=== PATIENT | female | born 1995 | race Caucasian/White ===

== ENCOUNTER 2017-12-28 06:10 | Inpatient (IN) | payer OTHER ==
[2017-12-28] MEDS ORDERED: AMPICILLIN - 2 GM in SODIUM CHLORIDE 100 ML IVPB ONE (06:30)
[2017-12-28] MEDS: ELECTROLYTE-148 SOLN 1,000 ML IV SCH ×2 (07:15→09:23)
[2017-12-28] MEDS ORDERED: AMPICILLIN SODIUM 2 GM VIAL ONE (07:17)
[2017-12-28 08:07] LABS: BASO % 0.3 % (0-2.0); EOS % 0.2 % (0-4.5); HEMATOCRIT 40.2 % (32.4-45.2); HEMOGLOBIN 13.3 GM/dL (10.7-15.3); LYMPH % 12.9 % (8-40); MCH 29.9 pg (25.7-33.7); MEAN CELL VOLUME 90.4 fl (80-96); MEAN PLT VOLUME 11.9 fl (7.5-11.1); MONO % 7.7 % (3.8-10.2); NEUT % 78.9 % (42.8-82.8); PLATELET COUNT 98 K/MM3 (134-434); RBC 4.45 M/mm3 (3.60-5.2); RDW 13.4 % (11.6-15.6); WHITE BLOOD COUNT 11.6 K/mm3 (4.0-10.0)
[2017-12-28 08:14] VITALS: BMI 25.7
[2017-12-28 08:20] LABS: INR 0.93 (0.83-1.09)
[2017-12-28 08:23] LABS: ACTIVATED PTT 27.6 SECONDS (25.2-36.5); ALBUMIN 2.9 g/dl (3.4-5.0); ALK PHOS 293 U/L (45-117); ANION GAP 9 MMOL/L (8-16); BILIRUBIN,TOTAL 0.4 mg/dL (0.2-1); BLOOD UREA NITROGEN 7 mg/dL (7-18); CALCIUM 9.1 mg/dL (8.5-10.1); CHLORIDE 106 mmol/L (98-107); CO2 23 mmol/L (21-32); CREATININE 0.7 mg/dL (0.55-1.3); GLUCOSE,RANDOM 76 mg/dL (74-106); SGOT/AST 34 U/L (15-37); SGPT/ALT 29 U/L (13-61); SODIUM 138 mmol/L (136-145); TOT PROT 6.6 g/dl (6.4-8.2)
[2017-12-28] MEDS ORDERED: BUPIVACAINE HCL/PF 0.25% (2.5MG/ML) 10 ML VIAL ONE (08:33)
--- NOTE | 2017-12-28 08:37 | HP ---
Past Medical History - Primary Care Physician PCP:: Eleazar Kunz - Admission Chief Complaint: 39 weeks, labor, rom History of Present Illness: 22 yo f g 1 p0 edc 12/31 c/o rom since 5 am today, mec stain, cx 3 cm 80 vx -2 mr, mec stain AF, cat 1, fhr regular contraction History Source: Patient - Past Medical History ...: 1 ...Para: 0 ...Term: 0 ...: 0 ...Spon : 0 ...Induced : 0 ...Multiple Gestation: 0 ... Weeks Gestation by Dates: 39.4 ...EDC by Dates: 12/31/17 - Past Surgical History Hx Myomectomy: No Hx Transabdominal Cerclage: No - Smoking History Smoking history: Never smoked Have you smoked in the past 12 months: No - Alcohol/Substance Use Hx Alcohol Use: No - Social History History of Recent Travel: No Home Medications - Allergies Allergies/Adverse Reactions: Allergies Allergy/AdvReac Type Severity Reaction Status Date / Time No Known Allergies Allergy Verified 12/28/17 07:26 - Home Medications Home Medications: Ambulatory Orders Ferrous Sulfate [Feosol] 325 mg PO DAILY 12/28/17 Vits96/Iron Fum/Folic [ Tablet] 1 each PO DAILY 12/28/17 Review of Systems - Review of Systems Constitutional: reports: No Symptoms Eyes: reports: No Symptoms HENT: reports: No Symptoms Neck: reports: No Symptoms Cardiovascular: reports: No Symptoms Respiratory: reports: No Symptoms Gastrointestinal: reports: No Symptoms Genitourinary: reports: No Symptoms Breasts: reports: No Symptoms Reported Musculoskeletal: reports: No Symptoms Integumentary: reports: No Symptoms Neurological: reports: No Symptoms Endocrine: reports: No Symptoms Hematology/Lymphatic: reports: No Symptoms Psychiatric: reports: No Symptoms Physical Exam - Maternity Vital Signs: Vital Signs Temperature 98.8 F 12/28/17 08:00 Pulse Rate 72 12/28/17 08:00 Respiratory Rate 18 12/28/17 08:00 Blood Pressure 122/73 12/28/17 08:00 O2 Sat by Pulse Oximetry (%) Constitutional: Yes: Well Nourished, No Distress, Calm Eyes: Yes: WNL, Conjunctiva Clear, EOM Intact HENT: Yes: WNL, Atraumatic, Normocephalic Neck: Yes: WNL, Supple, Trachea Midline Cardiovascular: Yes: WNL, Regular Rate and Rhythm Breast(s): Yes: WNL - Abdominal Exam/OB Fundal Height: 40 Number of Fetuses: Single Presentation: Vertex Contractions: Yes Regularity: Regular Monitor Mode: External Heart Rate Location: [facility] Category: I Accelerations: Uniform Decelerations: None - Vaginal Exam/OB Vaginal Bleediing: No Speculum Exam: No Dilatation (cm): 3 cm Effacement (%): 80 Amniotic Membrane Status: Ruptured Nitrazine Test: Positive Meconium: Light Presentation: Vertex/Position Station: -2 - Physical Exam Musculoskeletal: Yes: WNL Extremities: Yes: WNL Edema: LLE: Trace, RLE: Trace Deep Tendon Reflex Grade: Normal +2 Psychiatric: Yes: WNL - Labs Lab Results: CBC, BMP 12/28/17 07:40 12/28/17 07:40 Hemorrhage Risk Assessment - Risk Factors Medium Risk Factors: Yes: None Risk Score: 1 Risk Level: Medium Risk Problem List - Problems (1) with 39 completed weeks gestation Code(s): Z3A.39 - 39 WEEKS GESTATION OF (2) membrane rupture Code(s): DNH6059 - (3) Meconium in amniotic fluid Code(s): P96.83 - MECONIUM STAINING Assessment/Plan admit, fhr cat 1, plan fhm, pain mamngement expect vaginal delivery
[2017-12-28] MEDS ORDERED: FENTANYL/BUPIVACAINE/NS/PF - PCEA - 50 ML DISP.SYRIN EP ONE ×2 (08:54→13:36)
[2017-12-28] MEDS ORDERED: NALOXONE HCL 0.4 MG/ML VIAL IVPUSH PRN (09:07)
[2017-12-28] MEDS ORDERED: FENTANYL/BUPIVACAINE/NS/PF - PCEA - 50 ML DISP.SYRIN EP SCH ×2 (09:15→10:28)
[2017-12-28 09:22] LABS: RPR NONREACTIVE (NONREACTIVE)
[2017-12-28] MEDS ORDERED: AMPICILLIN - 1 GM in SODIUM CHLORIDE 100 ML IVPB SCH (10:30)
[2017-12-28] MEDS ORDERED: OXYTOCIN 20 UNITS in 0.9% NS 20 UNIT/1,000 ML INFUS.BAG IV ONE (14:13)
[2017-12-28] MEDS ORDERED: LIDOCAINE HCL 1% PRESERVATIVE FREE - 30ML VIAL ONE (15:17)
--- NOTE | 2017-12-28 16:00 | PN ---
Progress Note (short form) - Note Progress Note: 205pm cx9 cm 100 vx 1+ . mr, mec . stain , fhr cat1 Problem List - Problems (1) with 39 completed weeks gestation Code(s): Z3A.39 - 39 WEEKS GESTATION OF (2) membrane rupture Code(s): YKH5547 - (3) Meconium in amniotic fluid Code(s): P96.83 - MECONIUM STAINING
[2017-12-28] MEDS ORDERED: METHYLERGONOVINE MALEATE 0.2 MG/1 ML AMP IM PRN (16:01)
[2017-12-28] MEDS ORDERED: BENZOCAINE 28 GM HEMORRHOIDAL OINTMENT TP PRN (16:01)
[2017-12-28] MEDS ORDERED: BISACODYL 10 MG SUPP.RECT RC PRN (16:01)
[2017-12-28] MEDS ORDERED: WITCH HAZEL 50% (TUCKS) 40 PAD/JAR PAD TP PRN (16:01)
[2017-12-28] MEDS ORDERED: BENZOCAINE 20% 57 GM BOTTLE TP PRN (16:01)
--- NOTE | 2017-12-28 16:01 | PN ---
Progress Note (short form) - Note Progress Note: 315 pm, cx full 100 vx2+ mr, fhr cat 1, wants to push Problem List - Problems (1) with 39 completed weeks gestation Code(s): Z3A.39 - 39 WEEKS GESTATION OF (2) membrane rupture Code(s): QFR3659 - (3) Meconium in amniotic fluid Code(s): P96.83 - MECONIUM STAINING
[2017-12-28] MEDS ORDERED: OXYTOCIN 20 UNITS in 0.9% NS 20 UNIT/1,000 ML INFUS.BAG IV SCH (16:15)
[2017-12-28] MEDS ORDERED: IBUPROFEN 600 MG TABLET (FP) PO ONE (17:06)
[2017-12-28] MEDS ORDERED: ACETAMINOPHEN 325 MG TABLET (FP) ONE (17:06)
[2017-12-28 17:11] LABS: ARTERIAL BLOOD GAS BASE EXCESS -3.2 meq/l (-2-2); ARTERIAL BLOOD GAS PCO2 55.7 mmHg (35-45); ARTERIAL BLOOD GAS pH 7.27 (7.35-7.45)
[2017-12-28] MEDS: ACETAMINOPHEN 325 MG TABLET (FP) PO PRN ×2 (17:14→21:54)
[2017-12-28] MEDS: IBUPROFEN 600 MG TABLET (FP) PO PRN ×2 (17:14→21:54)
[2017-12-28 17:22] LABS: ARTERIAL BLD GAS O2 SATURATION 24.1 % (90-98.9); ARTERIAL BLOOD GAS PO2 16.6 mmHg (80-100); VENOUS PC02 45.9 mmHg (38-52); VENOUS PH 7.32 (7.32-7.42)
[2017-12-28 17:23] LABS: VENOUS PO2 30.7 mmHg (28-48)
[2017-12-28] MEDS ORDERED: FERROUS SO4 325 MG TABLET (FP) PO SCH (17:30)
[2017-12-29] MEDS ORDERED: OXYTOCIN 20 UNITS in 0.9% NS 20 UNIT/1,000 ML INFUS.BAG IV SCH (00:14)
--- NOTE | 2017-12-29 01:55 | PN ---
Post Progress Note Post Day: 2 Type of Delivery: Vital Signs: Vital Signs Temperature 97.0 F L 12/28/17 22:00 Pulse Rate 79 12/28/17 22:00 Respiratory Rate 20 12/28/17 22:00 Blood Pressure 113/67 12/28/17 22:00 O2 Sat by Pulse Oximetry (%) 100 12/28/17 15:15 Breast Exam: Yes: Soft Uterus: Yes: Fundus Firm Abdomen/GI: Yes: Abdomen soft Lochia: Yes: Rubra Lochia, amount: Small Extremities: Yes: Calves non-tender Perineum: Yes: Intact Activity: Ambulating - Labs Labs: CBC WBC 11.6 K/mm3 (4.0-10.0) H 12/28/17 07:40 RBC 4.45 M/mm3 (3.60-5.2) 12/28/17 07:40 Hgb 13.3 GM/dL (10.7-15.3) 12/28/17 07:40 Hct 40.2 % (32.4-45.2) 12/28/17 07:40 MCV 90.4 fl (80-96) 12/28/17 07:40 MCH 29.9 pg (25.7-33.7) 12/28/17 07:40 MCHC 33.0 g/dl (32.0-36.0) 12/28/17 07:40 RDW 13.4 % (11.6-15.6) 12/28/17 07:40 Plt Count 98 K/MM3 (134-434) L 12/28/17 07:40 MPV 11.9 fl (7.5-11.1) H 12/28/17 07:40 Absolute Neuts (auto) 9.1 K/mm3 (1.5-8.0) H 12/28/17 07:40 Neutrophils % 78.9 % (42.8-82.8) 12/28/17 07:40 Lymphocytes % 12.9 % (8-40) 12/28/17 07:40 Monocytes % 7.7 % (3.8-10.2) 12/28/17 07:40 Eosinophils % 0.2 % (0-4.5) 12/28/17 07:40 Basophils % 0.3 % (0-2.0) 12/28/17 07:40 Nucleated RBC % 0 % (0-0) 12/28/17 07:40 Assessment/Plan as above oob reg diet check labs
[2017-12-29 06:08] LABS: HBsAG SCREEN Negative (Negative); RUBELLA IgG ANTIBODY 1.41 index (Immune >0.99)
[2017-12-29 08:02] LABS: BASO % 0.1 % (0-2.0); EOS % 0.3 % (0-4.5); HEMATOCRIT 37.2 % (32.4-45.2); HEMOGLOBIN 12.5 GM/dL (10.7-15.3); MCH 30.3 pg (25.7-33.7); MCHC 33.7 g/dl (32.0-36.0); MEAN CELL VOLUME 89.9 fl (80-96); MEAN PLT VOLUME 11.9 fl (7.5-11.1); MONO % 7.2 % (3.8-10.2); NEUT % 80.4 % (42.8-82.8); PLATELET COUNT 90 K/MM3 (134-434); RBC 4.14 M/mm3 (3.60-5.2); RDW 13.9 % (11.6-15.6); WHITE BLOOD COUNT 14.3 K/mm3 (4.0-10.0)
[2017-12-29] MEDS: FERROUS SO4 325 MG TABLET (FP) PO SCH ×2 (08:20→17:00)
[2017-12-29] MEDS: PRENATAL VITAMINS W/ FOLIC ACID TABLET (FP) PO SCH (09:03)
[2017-12-29] MEDS: IBUPROFEN 600 MG TABLET (FP) PO PRN ×3 (12:50→21:49)
[2017-12-29] MEDS: ACETAMINOPHEN 325 MG TABLET (FP) PO PRN ×3 (12:51→21:49)
[2017-12-29] MEDS ORDERED: SENNOSIDES/DOCUSATE COMBO (SENNA PLUS) TABLET (UD) PO PRN (22:00)
[2017-12-30] MEDS: ACETAMINOPHEN 325 MG TABLET (FP) PO PRN (08:02)
[2017-12-30] MEDS: IBUPROFEN 600 MG TABLET (FP) PO PRN (08:02)
[2017-12-30] MEDS: FERROUS SO4 325 MG TABLET (FP) PO SCH (08:03)
[2017-12-30 08:46] VITALS: BP 113/53; PULSE 66; TEMP 98.1
[2017-12-30] MEDS: PRENATAL VITAMINS W/ FOLIC ACID TABLET (FP) PO SCH (10:04)
--- NOTE | 2017-12-31 16:29 | DS ---
Physical Exam-[employer] Vital Signs: Vital Signs Temperature 98.1 F 12/30/17 08:45 Pulse Rate 66 12/30/17 08:45 Respiratory Rate 18 12/30/17 08:45 Blood Pressure 113/53 L 12/30/17 08:45 O2 Sat by Pulse Oximetry (%) 100 12/28/17 15:15 Constitutional: Yes: Well Nourished, No Distress, Calm Eyes: Yes: WNL, Conjunctiva Clear, EOM Intact HENT: Yes: WNL, Atraumatic, Normocephalic Neck: Yes: WNL, Supple, Trachea Midline Cardiovascular: Yes: WNL, Regular Rate and Rhythm Respiratory: Yes: WNL, Regular, CTA Bilaterally Gastrointestinal: Yes: WNL ...Rectal Exam: Yes: WNL Renal/: Yes: WNL External Genitalia: Yes: Normal ....Post : Yes: Uterus firm, Uterus non-tender, Slight lochia rubra Breast(s): Yes: WNL Musculoskeletal: Yes: WNL Extremities: Yes: WNL Integumentary: Yes: WNL Neurological: Yes: WNL, Alert, Oriented ...Motor Strength: WNL Psychiatric: Yes: WNL, Alert, Oriented Labs: CBC, BMP 12/29/17 07:30 12/28/17 07:40 Delivery - Delivery Vaginal Delivery: Spontaneous (no complication) Type of Anesthesia: Local, Epidural Episiotomy/Laceration: Midline EBL (cc): 300 Delivery, Single - Stages of Labor Date 1st Stage Initiatied: 12/28/17 Time 1st Stage Initiated: 01:00 Date 2nd Stage Initiated: 12/28/17 Time 2nd Stage Initiated: 15:15 Date of Delivery: 12/28/17 Time of Delivery: 15:37 Time Placenta Delivered: 15:48 Placenta: Yes: Spontaneous - Condition of Infant [employer] Developer/Campus Supervisor Present: Yes Name: Amirah Mccloud Gender: Male Weight: 8 lb 5 oz Position: Right, OA Total Hours ROM (Hrs/Mins): - 1 Minute Total Score: 7 5 Minutes Total Score: 9 Discharge Summary Reason For Visit: ADMIT Procedures: Principal: Hospital Course: no complication Condition: Stable - Instructions Diet, Activity, Other Instructions: Regresara a la clinica ( [address]) in 4-6 semanas, llamar para la nurys. Referrals: [facility] (Diya Morales) [Outside] Disposition: HOME - Home Medications Comprehensive Discharge Medication List: Ambulatory Orders Ferrous Sulfate [Feosol] 325 mg PO DAILY 12/28/17 Vits96/Iron Fum/Folic [ Tablet] 1 each PO DAILY 12/28/17
== END 2017-12-30 12:45 | disposition home or self-care (01) | DRG 560 ==
LOC: JLDR 06:10 → J3W 17:40
PROVIDERS: ADMIT Obstetrics & Gynecology; ATTEND Obstetrics & Gynecology
PROC: 10E0XZZ Delivery of Products of Conception, External Approach (ICD-10-PCS; principal; 2017-12-28)
DX: O77.0 Labor and delivery complicated by meconium in amniotic fluid (principal); Z3A.39 39 weeks gestation of pregnancy; Z37.0 Single live birth
CPT/HCPCS: 36415; 36600; 59409; 80053; 82803; 85025; 85461; 85610; 85730; 86593; 86762; 86850; 86900; 86901; 86999; 87340; 87389